=== PATIENT | male | born 1960 | race African-American/Black ===

== ENCOUNTER 2019-05-03 13:26 | Emergency (ER) | payer MEDICAID ==
[~2019-05-03] VITALS: Ht 175.3 cm; Wt 96.2 kg
[2019-05-03 13:40] VITALS: BP 145/76
--- NOTE | 2019-05-03 14:29 | NUR ---
ED Nurse Note: Pt walked into ED w/ c/o L posterior thigh pain for 3 days. Pt pain is 7/10 L thigh. Area is swollen, red, hot to touch. Pt is alert and orientedx4,a mbulatory with assist. Pt is set up on monitor. MD has seen pt.
[2019-05-03] MEDS ORDERED: ACETAMINOPHEN-1 EAC1 ORAL (15:04)
[2019-05-03] MEDS ORDERED: AUGMENTIN 875-1 EAC1 ORAL (15:04)
[2019-05-03 15:18] VITALS: BP 126/78
--- NOTE | 2019-05-03 15:19 | NUR ---
ER DISCHARGE NOTE: Patient is cleared to be discharged per ERMD, pt is aox4, on room air, with stable vital signs. pt was given dc and prescription instructions, pt was able to verbalize understanding, pt id band removed. pt is able to ambulate with steady gait. pt took all belongings. Pt educated on cellulitis.
--- NOTE | 2019-05-03 15:29 | Diagnostic Imaging Report ---
Indication: Left leg pain Technique: Grayscale and duplex images of the left lower extremity veins Comparison: None Findings: On the left, grayscale and duplex images demonstrate no evidence of intraluminal thrombus. Normal phasic Doppler waveforms, demonstrating normal augmentation response and no evidence of valvular insufficiency. Greater saphenous vein(s) and tibial veins are patent. Normal compressibility. Impression: Negative for evidence of lower extremity deep venous thrombosis on the left
--- NOTE | 2019-05-03 17:07 | Emergency Room Report ---
History of Present Illness General Chief Complaint: Pain Source: Patient Present Illness COVID-19 risk:Travel to affect: No Allergies: Coded Allergies: No Known Allergies (Unverified , 05/03/19) Patient History Pertinent Family History: none Social History: Denies: smoking, alcohol use, drug use Immunizations: UTD Reviewed Nursing Documentation: PMH: Agreed; PSxH: Agreed Nursing Documentation-PMH Past Medical History: No Stated History Physical Exam Vital Signs Date Time Temp Pulse Resp B/P (MAP) Pulse Ox O2 Delivery O2 Flow Rate FiO2 05/03/19 13:40 98.7 87 17 145/76 99 Room Air Medical Decision Making Diagnostic Impression: Primary Impression: Cellulitis, leg Qualified Codes: L03.116 - Cellulitis of left lower limb ER Course Hospital Course 58 yo M presents c/o L leg pain/swelling Differential diagnoses include: DVT, cellulitis, contusion, abscess Clinical course Patient placed on stretcher after initial history and physical I ordered DVT ultrasound. I discussed findings with patient. Consideration for cellulitis. Afebrile, nontoxic-appearing. Will discharge home with antibiotics. Safe for discharge for close outpatient follow-up. states he has a PMD I. I feel this is a highly complex case requiring extensive working including EKG/Rhythm strip, Xray/CT/US, Blood/urine lab work, repeat exams while in ED, and administration of strong opiates/narcotics for pain control, admission to hospital or close patient follow up. Diagnosis - leg cellulitis Stable and discharged to home with Rx tylenol #3, Augmentin. Followup with PMD. Return to ED if symptoms recur or worsen CT/MRI/US Diagnostic Results CT/MRI/US Diagnostic Results : Imaging Test Ordered: Venous Duplex Impression no evidence of DVT on LLE Last Vital Signs Date Time Temp Pulse Resp B/P (MAP) Pulse Ox O2 Delivery O2 Flow Rate FiO2 05/03/19 15:18 97.9 81 18 126/78 96 Room Air Status: improved Disposition: HOME, SELF-CARE Condition: Stable Scripts Acetaminophen With Codeine (T#3) (TYLENOL #3 TAB*) Y Tab 1 TAB ORAL Q4H PRN for For Pain, #12 TAB Prov: Adrián Bates MD 05/03/19 Amoxicillin/Potassium Clav 875-125* (AUGMENTIN 875-125 TABLET*) 1 Each Tablet 1 TAB ORAL TWICE A DAY, #14 TAB Prov: Adrián Bates MD 05/03/19 Referrals: NOT CHOSEN IPA/MD,REFERRING (PCP) Patient Instructions: Cellulitis, [id number] Adrián Bates MD May 03, 2019 17:07
== END 2019-05-03 15:19 | disposition home or self-care (01) ==
LOC: EMR 14:41
DX: L03.116 Cellulitis of left lower limb (principal)
CPT/HCPCS: 93971; Z7502; 99284